=== PATIENT | female | born 1950 | race Caucasian/White ===

== ENCOUNTER 2021-08-29 20:31 | Inpatient (IN) | payer MEDICARE, OTHER ==
[~2021-08-29] VITALS: Ht 147.3 cm; Wt 72.6 kg
[~2021-08-29 20:31] MED LIST: BENTYL 20MG TAB20 MG PO; CALCIUM 600 +1 EAC7 PO; FLEXERIL 10 MG10 MG PO; LISINOPRIL20 MG PO; LORATADINE10 MG PO; MOBIC15 MG PO; NASONEX17 GM; NORVASC 5 MG TAB5 MG PO; NORVASC5 MG PO; PERCOCET 5-3251 EACH PO; PROTONIX 40 MG40 M1 PO; QUINAPRIL-HCTZ1 EAC1 PO; SINGULAIR10 MG PO; TUMS/TITRALAC500 MG PO; XARELTO10 MG PO; ZOFRAN ODT 4 MG4 MG SL; ZOFRAN4 MG PO
[2021-08-29 21:37] LABS: HEMOGLOBIN 17.1 gm/dl (12.3-15.3); RED BLOOD COUNT 5.09 M/UL (4.00-5.10); WHITE BLOOD COUNT 19.4 K/UL (4.5-11.0)
[2021-08-30] MEDS ORDERED: CENTRUM COMPLE1 EACH PO (01:54)
[2021-08-30] MEDS ORDERED: MIRALAX17 GM PO (01:57)
[2021-08-30] MEDS ORDERED: CYCLOBENZAPRINE10 MG PO (01:57)
== END 2021-08-31 09:40 | disposition home or self-care (01) | DRG 355 ==
LOC: ER1 20:31 → CDU 23:32 → PROG CARE 08-30 01:34
PROVIDERS: Physician Assistant; ADMIT Surgery
PROC: 0WUF0JZ Supplement Abdominal Wall with Synthetic Substitute, Open Approach (ICD-10-PCS; principal; 2021-08-30 08:25)
DX: K43.6 Other and unspecified ventral hernia with obstruction, without gangrene (principal); I10 Essential (primary) hypertension; Z20.822 Contact with and (suspected) exposure to COVID-19; H91.90 Unspecified hearing loss, unspecified ear; Z96.653 Presence of artificial knee joint, bilateral; Z90.49 Acquired absence of other specified parts of digestive tract; Z90.710 Acquired absence of both cervix and uterus; Z98.890 Other specified postprocedural states; Z88.2 Allergy status to sulfonamides; Z88.6 Allergy status to analgesic agent; Z91.040 Latex allergy status; Z88.5 Allergy status to narcotic agent; Z88.0 Allergy status to penicillin; Z91.013 Allergy to seafood
CPT/HCPCS: 71045; 80053; 81001; 82150; 82962; 83605; 83690; 85025; 87086; 93005; 96374; 96375; 99285; C1781; J1100; J2001; J2270; J2370; J2405; J2704; J3010; J3370; Q9967